=== PATIENT | male | born 1990 | race Caucasian/White ===

== ENCOUNTER 2020-03-09 14:19 | Emergency (ER) | payer BC ==
[2020-03-09 14:27] VITALS: TEMP 98.8
[2020-03-09] MEDS ORDERED: SODIUM CHLORIDE 0.9% 500 ML 500 ML IV STA (14:47)
[2020-03-09] MEDS ORDERED: ASPIRIN 81 MG PO STA (14:47)
[2020-03-09] MEDS ORDERED: LORazepam 1 MG TAB PO STA (14:47)
[2020-03-09 15:22] LABS: Basophils # (A) 0.1 k/uL (0-0.2); Basophils % (A) 1 %; Eosinophils # (A) 0.1 k/uL (0-0.7); Eosinophils % (A) 1 %; HGB 14.7 gm/dL (13.0-17.5); Lymphocytes # (A) 1.7 k/uL (1.0-4.8); Lymphocytes % (A) 12 %; MCH 30.1 pg (25.0-35.0); MCHC 33.4 g/dL (31.0-37.0); MCV 90.2 fL (80.0-100.0); Mean Platelet Volume 8.6; Monocytes # (A) 1.4 k/uL (0-1.0); Monocytes % (A) 10 %; Neutrophils # (A) 10.7 k/uL (1.3-7.7); Neutrophils % (A) 73 %; Platelet Count 312 k/uL (150-450); RBC 4.88 m/uL (4.30-5.90); RDW 12.8 % (11.5-15.5); WBC 14.7 k/uL (3.8-10.6)
[2020-03-09 15:33] LABS: ALT 21 U/L (4-49); AST 29 U/L (17-59); African American GFR (CKD) >90 (>60 ml/min/1.73 sqM); Albumin 4.5 g/dL (3.5-5.0); Alkaline Phosphatase 97 U/L (38-126); Anion Gap 12 mmol/L; Blood Urea Nitrogen 18 mg/dL (9-20); Calcium 9.3 mg/dL (8.4-10.2); Carbon Dioxide 28 mmol/L (22-30); Chloride 101 mmol/L (98-107); Glucose 111 mg/dL (74-99); Magnesium 2.2 mg/dL (1.6-2.3); Non-African American GFR(CKD) >90 (>60 ml/min/1.73 sqM); Potassium 3.4 mmol/L (3.5-5.1); Sodium 141 mmol/L (137-145); Total Bilirubin 0.7 mg/dL (0.2-1.3)
--- NOTE | 2020-03-09 15:38 | XR ---
EXAMINATION TYPE: XR chest 2V DATE OF EXAM: 03/09/2020 COMPARISON: NONE HISTORY: Chest pain TECHNIQUE: 2 views FINDINGS: There is 4 cm masslike infiltrate in the periphery of the left midlung. The other lung fiel ds are clear. There is no pleural effusion. There are no hilar masses. Heart size is normal. There is no heart failure. IMPRESSION: There is rounded area of consolidation in the left midlung in the lingula of the left upp er lobe. Follow-up is recommended show clearing. This probably relates to bronchopneumonia. Normal he art.
[2020-03-09] MEDS ORDERED: cefTRIAXone IN SWFI 1,000 MG/10 ML SYRINGE IVP STA (15:47)
[2020-03-09] MEDS ORDERED: AZITHROMYCIN 500 MG TAB PO STA (15:47)
[2020-03-09 16:22] VITALS: PULSE 92
[2020-03-09] MEDS ORDERED: POTASSIUM CHLORIDE ER 10 MEQ TAB.ER.PRT PO STA (17:33)
--- NOTE | 2020-03-09 18:20 | ED ---
General Adult HPI - General Chief complaint: Chest Pain Stated complaint: Chest Pain, Dizziness Time Seen by Provider: 03/09/20 14:34 Source: patient, RN notes reviewed, old records reviewed Mode of arrival: wheelchair Limitations: no limitations - History of Present Illness Initial comments: 30-year-old male patient to ED for evaluation. Patient reports that he has had cough congestion waxing and waning fevers the last 3 days. He was tested for covid and was negative. Patient reports that he has not developed some pain in the left lateral rib region. Continues to have cough. Reports some mild shortness of breath with coughing.Denies any other acute complaints. Systemic: Pt denies fatigue, fever/chills, rash. Pt denies weakness, night sweats, weight loss. Neuro: Pt denies headache, visual disturbances, syncope or pre-syncope. HEENT: Pt denies ocular discharge or irritation, otalgia, rhinorrhea, pharyngitis or notable lymphadenopathy. Cardiopulmonary: Pt denies heart palpitations, dyspnea on exertion. Abdominal/GI: Pt denies abdominal pain, n/v/d. : Pt denies dysuria, burning w/ urination, frequency/urgency. Denies new onset urinary or bowel incontinence. MSK: Pt denies myalgia, loss of strength or function in extremities. Neuro: Pt denies new onset weakness, paresthesias. - Related Data Home Medications Medication Instructions Recorded Confirmed Cpm/PE/Dm/Acetaminophen/Guaifn 1 tab PO Q8H PRN 03/09/20 03/09/20 [Tylenol Cold-Flu Day-Nt Caplet] Previous Rx's Medication Instructions Recorded Azithromycin [Zithromax Z-pack (6 0 mg PO DIRECTED #6 tab 03/09/20 tabs)] Allergies Allergy/AdvReac Type Severity Reaction Status Date / Time No Known Allergies Allergy Verified 03/09/20 17:17 Review of Systems ROS Statement: Those systems with pertinent positive or pertinent negative responses have been documented in the HPI. ROS Other: All systems not noted in ROS Statement are negative. Past Medical History Past Medical History: No Reported History History of Any Multi-Drug Resistant Organisms: None Reported Past Surgical History: No Surgical Hx Reported Past Psychological History: No Psychological Hx Reported Smoking Status: Current some day smoker Past Alcohol Use History: None Reported Past Drug Use History: Marijuana General Exam - General Exam Comments Initial Comments: Constitutional: NAD, AOX3, Pt has pleasant affect. HEENT: NC/AT, trachea midline, neck supple, no lymphadenopathy. External ears appear normal, without discharge. Mucous membranes moist. Eyes PERRLA, EOM intact. There is no scleral icterus. No pallor noted. Cardiopulmonary: RRR, no murmurs, rubs or gallops, no JVD noted. Mild rales noted left anterior lung field. Other lung tenorio are clear.. No peripheral edema. Abdominal exam: Abdomen soft and non-distended. Abdomen non-tender to palpation in all 4 quadrants. Bowel sounds active in LLQ. No hepatosplenomegaly. No ecchymosis Neuro: CN II-XII grossly intact. No nuchal rigidity. MSK: No posterior calf tenderness bilaterally, homans sign negative bilaterally. Posterior tibialis and radial pulse +2 bilaterally. Sensation intact in upper and lower extremities. Full active ROM in upper and lower extremities, 5/5 stregnth. Limitations: no limitations Course Vital Signs 03/09/20 03/09/20 03/09/20 14:22 16:21 18:35 Temperature 98.8 F Pulse Rate 102 H 92 92 Respiratory 18 19 17 Rate Blood Pressure 123/79 108/71 127/77 O2 Sat by Pulse 100 100 97 Oximetry Medical Decision Making - Medical Decision Making 30-year-old male patient ED for cough congestion chest pain. Patient vital signs are stable, afebrile. Physical exam displayed mild mild rales left lung field. Chest x-ray displayed rounded area and left midlung, likely pneumonia. Laboratory investigations revealed mild leukocytosis. D-dimer is negative. Patient will be initiated on cephalexin azithromycin. Will discharge very close return precautions and close follow up with his primary care provider. Case discussed with Dr. Butterfield - Lab Data Result diagrams: 03/09/20 15:14 03/09/20 15:14 Lab Results 03/09/20 03/09/20 03/09/20 Range/Units 15:14 15:14 15:14 WBC 14.7 H (3.8-10.6) k/uL RBC 4.88 (4.30-5.90) m/uL Hgb 14.7 (13.0-17.5) gm/dL Hct 44.0 (39.0-53.0) % MCV 90.2 (80.0-100.0) fL MCH 30.1 (25.0-35.0) pg MCHC 33.4 (31.0-37.0) g/dL RDW 12.8 (11.5-15.5) % Plt Count 312 (150-450) k/uL Neutrophils % 73 % Lymphocytes % 12 % Monocytes % 10 % Eosinophils % 1 % Basophils % 1 % Neutrophils # 10.7 H (1.3-7.7) k/uL Lymphocytes # 1.7 (1.0-4.8) k/uL Monocytes # 1.4 H (0-1.0) k/uL Eosinophils # 0.1 (0-0.7) k/uL Basophils # 0.1 (0-0.2) k/uL D-Dimer 0.37 (<0.60) mg/L FEU Sodium 141 (137-145) mmol/L Potassium 3.4 L (3.5-5.1) mmol/L Chloride 101 (98-107) mmol/L Carbon Dioxide 28 (22-30) mmol/L Anion Gap 12 mmol/L BUN 18 (9-20) mg/dL Creatinine 0.91 (0.66-1.25) mg/dL Est GFR (CKD-EPI)AfAm >90 (>60 ml/min/1.73 sqM) Est GFR (CKD-EPI)NonAf >90 (>60 ml/min/1.73 sqM) Glucose 111 H (74-99) mg/dL Calcium 9.3 (8.4-10.2) mg/dL Magnesium 2.2 (1.6-2.3) mg/dL Total Bilirubin 0.7 (0.2-1.3) mg/dL AST 29 (17-59) U/L ALT 21 (4-49) U/L Alkaline Phosphatase 97 (38-126) U/L Troponin I (0.000-0.034) ng/mL Total Protein 8.0 (6.3-8.2) g/dL Albumin 4.5 (3.5-5.0) g/dL 03/09/20 Range/Units 15:14 WBC (3.8-10.6) k/uL RBC (4.30-5.90) m/uL Hgb (13.0-17.5) gm/dL Hct (39.0-53.0) % MCV (80.0-100.0) fL MCH (25.0-35.0) pg MCHC (31.0-37.0) g/dL RDW (11.5-15.5) % Plt Count (150-450) k/uL Neutrophils % % Lymphocytes % % Monocytes % % Eosinophils % % Basophils % % Neutrophils # (1.3-7.7) k/uL Lymphocytes # (1.0-4.8) k/uL Monocytes # (0-1.0) k/uL Eosinophils # (0-0.7) k/uL Basophils # (0-0.2) k/uL D-Dimer (<0.60) mg/L FEU Sodium (137-145) mmol/L Potassium (3.5-5.1) mmol/L Chloride (98-107) mmol/L Carbon Dioxide (22-30) mmol/L Anion Gap mmol/L BUN (9-20) mg/dL Creatinine (0.66-1.25) mg/dL Est GFR (CKD-EPI)AfAm (>60 ml/min/1.73 sqM) Est GFR (CKD-EPI)NonAf (>60 ml/min/1.73 sqM) Glucose (74-99) mg/dL Calcium (8.4-10.2) mg/dL Magnesium (1.6-2.3) mg/dL Total Bilirubin (0.2-1.3) mg/dL AST (17-59) U/L ALT (4-49) U/L Alkaline Phosphatase (38-126) U/L Troponin I <0.012 (0.000-0.034) ng/mL Total Protein (6.3-8.2) g/dL Albumin (3.5-5.0) g/dL - EKG Data -: EKG Interpreted by Me (and Dr. Butterfield ) EKG Comments: Ventricular 86, NJ interval 118, QRS 88, QT/QTC 354/423. Sinus rhythm. No concern for acute ischemia at this time. Disposition Clinical Impression: Pneumonia Disposition: HOME SELF-CARE Condition: Stable Instructions (If sedation given, give patient instructions): Pneumonia (ED) Additional Instructions: take antibiotics as directed. Follow-up with primary care provider tomorrow. Return to ER if any worsening symptoms. Prescriptions: Azithromycin [Zithromax Z-pack (6 tabs)] 0 mg PO DIRECTED #6 tab Is patient prescribed a controlled substance at d/c from ED?: No Referrals: None,Stated [Primary Care Provider] - 1-2 days Christie Clemente MD [REFERRING] - 1-2 days
[2020-03-09 18:37] VITALS: BP 127/77; RESP 17
== END 2020-03-09 18:48 | disposition home or self-care (01) ==
LOC: EC 14:19
DX: J18.9 Pneumonia, unspecified organism (principal); F17.200 Nicotine dependence, unspecified, uncomplicated
CPT/HCPCS: 36415; 93005; 85379; 80053; 83735; 84484; 85025; 71046; 99285; 96374; 96361; J0696